=== PATIENT | male | born 1940 | race Caucasian/White ===

== ENCOUNTER 2018-05-08 00:09 | Inpatient (IN) | payer OTHER, MEDICARE ==
[~2018-05-08] VITALS: Ht 182.9 cm; Wt 87.1 kg
[2018-05-08 00:41] LABS: BASOPHILS ABSOLUTE AUTO 0.02 K/mm3 (0.00-0.23); BASOPHILS PERCENT AUTO 0 % (0-2); EOSINOPHILS PERCENT AUTO 1 % (0-6); Hematocrit 33.2 % (37.0-53.0); Hemoglobin 10.6 g/dL (13.5-17.5); IMMATURE GRAN ABSOLUTE AUTO 0.03 K/mm3 (0.00-0.10); IMMATURE GRAN PERCENT AUTO 0 % (0-1); LYMPHOCYTES ABSOLUTE AUTO 1.25 K/mm3 (0.84-5.20); LYMPHOCYTES PERCENT AUTO 15 % (21-46); MONOCYTES PERCENT AUTO 11 % (4-13); Mean Corpuscular HGB 28.5 pg (26.0-34.0); Mean Corpuscular HGB Conc 31.9 g/dL (31.5-36.5); Mean Corpuscular Volume 89 fL (80-100); Mean Platelet Volume 9.5 fL (9.1-12.4); NEUTROPHILS ABSOLUTE AUTO 6.12 K/mm3 (1.96-9.15); NEUTROPHILS PERCENT AUTO 73 % (41-73); Platelet Count 318 K/mm3 (150-400); RDW Coefficient Variation 15.5 % (11.7-14.2); RDW Standard Deviation 51.1 fL (35.1-46.3); Red Blood Cell Count 3.72 M/mm3 (4.30-5.90); White Blood Cell Count 8.42 K/mm3 (4.00-11.30)
[2018-05-08 01:03] LABS: Bun/Creatinine Ratio 18.1 (12.0-20.0); Calcium, Blood 8.3 mg/dL (8.5-10.1); Creatinine, Blood 1.6 mg/dL (0.60-1.20); Potassium, Blood 4.3 mmol/L (3.5-5.5)
[2018-05-08] MEDS ORDERED: ACETAMINOPHEN650 MG PO (02:59)
[2018-05-08] MEDS ORDERED: BISA10S PR (03:00)
[2018-05-08] MEDS ORDERED: Voltaren100 GM TOP (03:01)
[2018-05-08] MEDS ORDERED: Dicyclomine HCl20 MG PO (03:04)
[2018-05-08] MEDS ORDERED: ENOX40I SC (03:06)
[2018-05-08] MEDS ORDERED: FENT50TP TOP (03:07)
[2018-05-08] MEDS ORDERED: FISH OIL 1,0001 EAC1 PO (03:07)
[2018-05-08] MEDS ORDERED: Magnesium Citr296 ML (03:08)
[2018-05-08] MEDS ORDERED: MELA3 PO (03:08)
[2018-05-08] MEDS ORDERED: MORPHINE S10 MG/0.5 PO (03:09)
[2018-05-08] MEDS ORDERED: Hair, Skin & N1 EACH PO (03:10)
[2018-05-08] MEDS ORDERED: OXYC5 PO (03:10)
[2018-05-08] MEDS ORDERED: QUETIAPINE FUM100 MG PO (03:11)
[2018-05-08] MEDS ORDERED: Senna-Extra17.2 MG PO (03:11)
[2018-05-08] MEDS ORDERED: Hytrin2 MG PO (03:11)
[2018-05-08 05:56] LABS: Hematocrit 33.2 % (37.0-53.0); Hemoglobin 10.6 g/dL (13.5-17.5); Mean Corpuscular HGB 28.6 pg (26.0-34.0); Mean Corpuscular HGB Conc 31.9 g/dL (31.5-36.5); Mean Corpuscular Volume 90 fL (80-100); Mean Platelet Volume 9.3 fL (9.1-12.4); Platelet Count 321 K/mm3 (150-400); RDW Coefficient Variation 15.6 % (11.7-14.2); RDW Standard Deviation 51.3 fL (35.1-46.3); Red Blood Cell Count 3.71 M/mm3 (4.30-5.90)
[2018-05-08 06:18] LABS: Albumin/Globulin Ratio 0.8 (0.8-1.8); Bilirubin, Total 0.6 mg/dL (0.1-1.0); Bun/Creatinine Ratio 18.5 (12.0-20.0); Calcium, Blood 8.2 mg/dL (8.5-10.1); Creatinine, Blood 1.51 mg/dL (0.60-1.20); Globulin, Blood 3.7 g/dL (2.2-4.0); Potassium, Blood 4.4 mmol/L (3.5-5.5); Total Protein, Blood 6.7 g/dL (6.4-8.2)
[2018-05-11] MEDS ORDERED: Milk Of Ma400 MG/5 M PO (15:06)
[2018-05-11] MEDS ORDERED: DOCU100 PO (15:07)
== END 2018-05-11 15:43 | disposition hospice, home (50) | DRG 560 ==
LOC: ER 00:09 → SURS 02:51 → MEDS 05-10 17:48
PROVIDERS: Emergency Medicine; Internal Medicine
DX: M97.12XA Periprosthetic fracture around internal prosthetic left knee joint, initial encounter (principal); F02.81 Dementia in other diseases classified elsewhere, unspecified severity, with behavioral disturbance; W18.30XA Fall on same level, unspecified, initial encounter; Y92.129 Unspecified place in nursing home as the place of occurrence of the external cause; G30.9 Alzheimer's disease, unspecified; Z96.659 Presence of unspecified artificial knee joint; Z79.891 Long term (current) use of opiate analgesic; N40.0 Benign prostatic hyperplasia without lower urinary tract symptoms; Z66 Do not resuscitate; N28.9 Disorder of kidney and ureter, unspecified; D64.9 Anemia, unspecified; D63.1 Anemia in chronic kidney disease; N18.2 Chronic kidney disease, stage 2 (mild)
CPT/HCPCS: 36415; 71045; 73552; 73560-LT; 80048; 80053; 85025; 85027; 87493; 97162; 97530; 99285; G8978; G8979; J1630; J1650; J3010; J3360; J7030; J7120